=== PATIENT | female | born 1965 | race Caucasian/White ===

== ENCOUNTER 2025-02-11 08:36 | Day surgery (SDC) | payer BC ==
[~2025-02-11] VITALS: Ht 157.5 cm; Wt 55.0 kg
[~2025-02-11 08:36] MED LIST: Estrace Vagin42.5 GM VAG; Lidocaine HCl 2% 10 ML SDA ONE; METO25ER PO; MORP15ER; MORP15ER PO; PANT20 PO; SKYRIZI150 MG/1 M SQ
[2025-02-11] MEDS ORDERED: FARXIGA5 MG PO (08:54)
[2025-02-11] MEDS ORDERED: FUROSEMIDE20 MG PO (08:56)
[2025-02-11] MEDS ORDERED: SPIRONOLACTONE50 MG PO (08:56)
[2025-02-11] MEDS ORDERED: KLOR-CON 1010 ME9 PO (08:56)
[2025-02-11] MEDS ORDERED: CEVIMELINE HCL30 MG PO (08:56)
[2025-02-11] MEDS ORDERED: Midazolam HCl 1MG / ML 2ML Vial ONE (09:16)
[2025-02-11] MEDS ORDERED: FentaNYL Citrate 50 MCG/ML 2 ML Injection ONE ×2 (09:17→12:25)
--- NOTE | 2025-02-11 09:18 | NUR ---
02/11/25 0918 Candy Pruitt VANCOMYCIN 1G IVPG STARTED AT 0914 AT 250ML/HR. PT TOLERATING WELL. CALL LIGHT IN REACH.
[2025-02-11] MEDS ORDERED: Dexamethasone Sod Phos 10 MG/ML 1ML VIAL ONE (09:30)
[2025-02-11] MEDS ORDERED: HYDROmorphone HCl/Pf 1MG SYR ONE (09:38)
[2025-02-11] MEDS ORDERED: Ondansetron HCl 2 MG / ML 2ML Vial ONE ×2 (10:26→11:00)
--- NOTE | 2025-02-11 10:45 | NUR ---
02/11/25 1045 Willow Walker REPORT RECEIVED FROM HOMA AND RN. PT ASLEEP WITH LMA IN PLACE UPON ARRIVAL. LMA REMOVED AT 1042. VSS. O2 SAT 100% ON RA. IV PATIENT. DRESSING CLEAN AND INTACT. CAP REFILL <3 SECONDS ON LEFT FINGERS AND LEFT FINGERS PINK, WARM, MOIST. UNABLE TO ASSESS LEFT RADIAL PULSE DUE TO SPLINT.
--- NOTE | 2025-02-11 11:05 | NUR ---
02/11/25 1105 Willow Walker ICE PACK APPLIED TO LEFT ARM
== END 2025-02-11 12:52 | disposition home or self-care (01) ==
LOC: ORSCSDS 08:36
PROVIDERS: Orthopaedic Surgery
PROC: 0PPV04Z Removal of Internal Fixation Device from Left Finger Phalanx, Open Approach (ICD-10-PCS; principal; 2025-02-11 10:00)
PROC: 0RGX04Z Fusion of Left Finger Phalangeal Joint with Internal Fixation Device, Open Approach (ICD-10-PCS; principal; 2025-02-11 10:00)
DX: M06.9 Rheumatoid arthritis, unspecified (principal); T84.84XA Pain due to internal orthopedic prosthetic devices, implants and grafts, initial encounter; Z47.2 Encounter for removal of internal fixation device; K21.9 Gastro-esophageal reflux disease without esophagitis; E11.9 Type 2 diabetes mellitus without complications; E07.9 Disorder of thyroid, unspecified; Z79.899 Other long term (current) drug therapy
CPT/HCPCS: 82947; C1713; C1769; J1100; J1171; J2003; J2250; J2405; J2704; J3010; J3373; J7050; J7120